=== PATIENT | female | born 1965 | race Caucasian/White ===

== ENCOUNTER 2016-12-22 22:02 | Emergency (ER) | payer MEDICAID, OTHER ==
[~2016-12-22] VITALS: Ht 154.9 cm; Wt 66.5 kg
[~2016-12-22 22:02] MED LIST: NITR-58 PO; TRAM50TA2 PO
[2016-12-22 22:11] VITALS: Ht 154.9 cm; Wt 66.5 kg
--- NOTE | 2016-12-23 02:26 | RADRPT ---
PROCEDURE: US thyroid. CLINICAL INDICATION: Thyroid mass TECHNIQUE: Multiple sonographic images of the thyroid were obtained utilizing a linear array trans ducer with grayscale and color-flow and a Doppler imaging. The images were reviewed on a high-resolu tion PACS workstation. COMPARISON: No prior studies are available for comparison. FINDINGS: The right lobe measures 4.5 x 1.8 x 1.9 cm. The left lobe measures 4.6 x 2 x 2 cm. The isthmus measures 3 mm. There is a slightly irregular cystic lesion in the lower pole of the right thyroid measuring 1.8 x 2 .2 x 2.1 cm. Debris or frond-like material is seen inferiorly within the lesion. There is a 6 mm h ypoechoic nodule in the upper pole of the right thyroid. In the lower pole of the left thyroid ther e is a 1.4 x 1.6 x 2.1 cm hypervascular nodule. There is also a 6 mm lesion in the left thyroid chapo r the isthmus medially in the left thyroid lobe. IMPRESSION: Bilateral thyroid nodules and complex cysts. Ultrasound guided fine needle aspiration could be obta ined if indicated clinically. RPTAT: [facility] Physician Alexis Date Time Electronically viewed and signed by Physician Alexis on 12/23/2016 02:25 LE/
[2016-12-23] MEDS ORDERED: NAPR-688 PO (02:41)
[2016-12-23] MEDS ORDERED: AMO500 PO (02:41)
[2016-12-23 02:50] VITALS: BP 158/97; PULSE 68; RESP 20; TEMP 98.1
--- NOTE | 2016-12-23 02:52 | ERD ---
ER Documentation Chief Complaint Date/Time DATE: 12/23/16 TIME: 02:[address], Right ear pain, possible mass on the neck and pain. HPI This 51-year-old came to the emergency room with her daughter for feeling of something at the front of her throat as well as right ear pain. When she was in [place] they told her that she had something wrong with her thyroid. They did not tell her what and they did not initiate any treatment. For the last few days she is feeling more pressure at the front of her neck. She also had right ear pain during that time. Denies any fevers or chills. Denies hearing loss. Denies any increased heart rate, feeling of jitteriness or other symptoms of thyrotoxicosis. ROS All systems reviewed and are negative except as per history of present illness. Medications Home Meds Active Scripts Amoxicillin* (Amoxicillin*) 500 Mg Cap, 500 MG PO BID for 10 Days, CAP Prov:LIN CROWDER DO 12/23/16 Naproxen* (Naproxen*) 500 Mg Tablet, 500 MG PO BID, #20 TAB Prov:LIN CROWDER DO 12/23/16 Tramadol HCl (Tramadol HCl) 50 Mg Tablet, 50 MG PO Q4 Y for PAIN, #20 TAB Prov:BROUSSARDALESHA I. OVERLOCK ELASTIC ATTACHER 12/09/15 Nitrofurantoin Monohyd Macrocr* (Macrobid*) 100 Mg Capsr, 100 MG PO BID for 5 Days, CAP Prov:BROUSSARDALESHA I. OVERLOCK ELASTIC ATTACHER 12/09/15 Allergies Allergies: Coded Allergies: No Known Allergy (Unverified , 12/22/16) PMhx/Soc History of Surgery: Yes (kidney stones) Anesthesia Reaction: No Hx Neurological Disorder: No Hx Respiratory Disorders: No Hx Cardiac Disorders: Yes (arrhythmia, HTN) Hx Psychiatric Problems: No Hx Miscellaneous Medical Probl: Yes (KIDNEY STONES) Hx Alcohol Use: No Hx Substance Use: No Hx Tobacco Use: No Physical Exam Vitals Vital Signs Date Time Temp Pulse Resp B/P Pulse Ox O2 Delivery O2 Flow Rate FiO2 12/22/16 22:11 97.8 84 20 135/83 97 Physical Exam Const: [] No distress Head: Atraumatic Eyes: Normal Conjunctiva ENT: Normal External Ears, Nose and Mouth. Right tympanic membrane with some dullness as compared to left. No cone of light visible on the right. Tympanic membrane is intact Neck: Full range of motion..~ No meningismus. Slight increased fullness and a small area on both the right and left sides of the thyroid. Skin: No petechiae or rashes Ext: No cyanosis, or edema Neur: Awake and alert Psych: Normal Mood and Affect Procedures/MDM Patient has increased fullness of her anterior neck with multiple thyroid nodules of different echogenicity and vascularity. Explained to her that thyroid cancer is likely that she will need a needle biopsy. She also has right ear pain with dullness. Family stated they would like to have antibiotics in case there is an ear infection. I am going to discharge her with amoxicillin as well as naproxen for inflammation. Patient is able to swallow and drinking water in the emergency room. There is no acute need for admission. The patient has good primary care follow-up. I instructed them to call their doctor and told him the need a fine-needle biopsy of the lesions to look for cancer. Also provided them with a copy of the ultrasound report as well as a CD with the visual information on it. Thyroid ultrasound interpretation: For different thyroid nodules of different vascularity. Departure Diagnosis: Primary Impression: Multiple thyroid nodules Additional Impression: Otitis media Condition: Stable Patient Instructions: Fine-Needle Thyroid Biopsy, Common Thyroid Problems, Otitis Media, Abx Tx (Adult) Additional Instructions: Call your primary care doctor TOMORROW for an appointment during the next 2-3 days.See the doctor sooner or return here if your condition worsens before your appointment time. LIN CROWDER DO December 23, 2016 02:52
== END 2016-12-23 02:57 | disposition home or self-care (01) ==
LOC: E/R 22:02
DX: E04.1 Nontoxic single thyroid nodule (principal); H66.91 Otitis media, unspecified, right ear; I10 Essential (primary) hypertension
CPT/HCPCS: 76536; Z7502

== ENCOUNTER 2017-03-11 20:44 | Inpatient (IN) | payer OTHER ==
[~2017-03-11] VITALS: Ht 152.4 cm; Wt 66.0 kg
[~2017-03-11 20:44] MED LIST changes: +AMO500 PO; +NAPR-688 PO
[2017-03-11 20:46] VITALS: Ht 152.4 cm; Wt 66.0 kg
[2017-03-12] MEDS ORDERED: SOD CHLORIDE 0.9% 500 ML IV STA (02:12)
[2017-03-12 02:58] LABS: BASOPHIL # 0.1 10^3/ul (0.0-0.1); BASOPHILS % 0.9 % (0.0-2.0); EOSINOPHILS # 0.3 10^3/ul (0.0-0.5); EOSINOPHILS % 3.2 % (0.0-7.0); HEMOGLOBIN 14.2 g/dl (12.0-16.0); LYMPHOCYTES # 4.5 10^3/ul (0.8-2.9); LYMPHOCYTES % 41.6 % (15.0-51.0); MEAN CORPUSCULAR HEMOGLOBIN 30.4 pg (29.0-33.0); MEAN CORPUSCULAR HGB CONC 32.3 g/dl (32.0-37.0); MEAN CORPUSCULAR VOLUME 94.2 fl (82.0-101.0); MEAN PLATELET VOLUME 12.8 fl (7.4-10.4); MONOCYTE # 0.9 10^3/ul (0.3-0.9); MONOCYTES % 8.2 % (0.0-11.0); NEUTROPHIL # 4.9 10^3/ul (1.6-7.5); NEUTROPHILS % 45.8 % (39.0-77.0); PLATELET COUNT 149 10^3/UL (140-415); RED BLOOD COUNT 4.67 10^6/ul (4.20-5.40); RED CELL DISTRIBUTION WIDTH 12.4 % (11.5-14.5); WHITE BLOOD COUNT 10.7 10^3/ul (4.8-10.8)
[2017-03-12 03:49] LABS: ALBUMIN 4.6 g/dl (3.3-4.9); ALBUMIN/GLOBULIN RATIO 1.17; BILIRUBIN,INDIRECT 0.3 mg/dl (0-1.1); BILIRUBIN,TOTAL 0.3 mg/dl (0.2-1.3); CREATININE 0.85 mg/dl (0.44-1.00); POTASSIUM 5.4 mmol/L (3.5-5.1); TOTAL PROTEIN 8.5 g/dl (6.1-8.1)
[2017-03-12 03:53] LABS: CALCIUM 13.4 mg/dl (8.4-10.2)
[2017-03-12 04:19] LABS: UR BACTERIA FEW /HPF (NONE SEEN); UR RBC 14 /HPF (0-5); UR SQUAMOUS EPITHELIAL CELL FEW /HPF (FEW)
[2017-03-12 04:27] LABS: ADD UMIC YES; UR ASCORBIC ACID NEGATIVE (NEGATIVE); UR BILIRUBIN (Dip) NEGATIVE (NEGATIVE); UR BLOOD (Dip) 2+ mg/dL (NEGATIVE); UR CLARITY SLIGHTLY CLOUDY (CLEAR); UR COLOR YELLOW (YELLOW); UR GLUCOSE (Dip) NEGATIVE (NEGATIVE); UR KETONES (Dip) NEGATIVE (NEGATIVE); UR LEUKOCYTE ESTERASE (Dip) 3+ Leu/ul (NEGATIVE); UR NITRITE (Dip) NEGATIVE (NEGATIVE); UR SPECIFIC GRAVITY (Dip) 1.004 (1.003-1.030); UR TOTAL PROTEIN (Dip) NEGATIVE (NEGATIVE); UR UROBILINOGEN (Dip) NEGATIVE (NEGATIVE)
[2017-03-12 05:15] VITALS: TEMP 98
--- NOTE | 2017-03-12 05:41 | ERA ---
ER Documentation Chief Complaint Date/Time DATE: 03/12/17 TIME: 05:39 Chief Complaint sent by PMD for abnormal labs- hypercalcemia HPI Symptoms are severe elevated calcium in by her primary care physician. Patient has known history of parathyroid disease. No fevers no chills no nausea no vomiting. No difficulty breathing. No other current issues. ROS All systems reviewed and are negative except as per history of present illness. Medications Home Meds Discontinued Scripts Amoxicillin* (Amoxicillin*) 500 Mg Cap, 500 MG PO BID for 10 Days, CAP Prov:LAKESHALIN DO 12/23/16 Naproxen* (Naproxen*) 500 Mg Tablet, 500 MG PO BID, #20 TAB Prov:LAKESHALIN DO 12/23/16 Tramadol HCl (Tramadol HCl) 50 Mg Tablet, 50 MG PO Q4 Y for PAIN, #20 TAB Prov:ALESHA BROUSSARD I. PUTTY PATCHER 12/09/15 Nitrofurantoin Monohyd Macrocr* (Macrobid*) 100 Mg Capsr, 100 MG PO BID for 5 Days, CAP Prov:ALESHA BROUSSARD I. PUTTY PATCHER 12/09/15 Allergies Allergies: Coded Allergies: No Known Allergy (Unverified , 03/12/17) PMhx/Soc History of Surgery: Yes (kidney stones) Anesthesia Reaction: No Hx Neurological Disorder: No Hx Respiratory Disorders: No Hx Cardiac Disorders: Yes (arrhythmia, HTN) Hx Psychiatric Problems: No Hx Miscellaneous Medical Probl: Yes (KIDNEY STONES) Hx Alcohol Use: No Hx Substance Use: No Hx Tobacco Use: No Smoking Status: Never smoker Physical Exam Vitals Vital Signs Date Time Temp Pulse Resp B/P Pulse Ox O2 Delivery O2 Flow Rate FiO2 03/11/17 20:46 97.7 82 20 157/86 98 Physical Exam Const: [] Head: Atraumatic Eyes: Normal Conjunctiva ENT: Normal External Ears, Nose and Mouth. Neck: Full range of motion..~ No meningismus. Resp: Clear to auscultation bilaterally Cardio: Regular rate and rhythm, no murmurs Abd: Soft, non tender, non distended. Normal bowel sounds Skin: No petechiae or rashes Back: No midline or flank tenderness Ext: No cyanosis, or edema Neur: Awake and alert Psych: Normal Mood and Affect Result Diagram: 03/12/173 03/12/17 0233 Results 24 hrs Laboratory Tests Test 03/12/17 02:33 03/12/17 03:30 White Blood Count 10.710^3/ul Red Blood Count 4.6710^6/ul Hemoglobin 14.2g/dl Hematocrit 44.0% Mean Corpuscular Volume 94.2fl Mean Corpuscular Hemoglobin 30.4pg Mean Corpuscular Hemoglobin Concent 32.3g/dl Red Cell Distribution Width 12.4% Platelet Count 78190^3/UL Mean Platelet Volume 12.8fl Neutrophils % 45.8% Lymphocytes % 41.6% Monocytes % 8.2% Eosinophils % 3.2% Basophils % 0.9% Nucleated Red Blood Cells % 0.0/100WBC Neutrophils # 4.910^3/ul Lymphocytes # 4.510^3/ul Monocytes # 0.910^3/ul Eosinophils # 0.310^3/ul Basophils # 0.110^3/ul Nucleated Red Blood Cells # 0.010^3/ul Sodium Level 142mmol/L Potassium Level 5.4mmol/L Chloride Level 106mmol/L Carbon Dioxide Level 22mmol/L Anion Gap 19 Blood Urea Nitrogen 15mg/dl Creatinine 0.85mg/dl Glucose Level 90mg/dl Calcium Level 13.4mg/dl Total Bilirubin 0.3mg/dl Direct Bilirubin 0.00mg/dl Indirect Bilirubin 0.3mg/dl Aspartate Amino Transf (AST/SGOT) 42IU/L Alanine Aminotransferase (ALT/SGPT) 75IU/L Alkaline Phosphatase 150IU/L Total Protein 8.5g/dl Albumin 4.6g/dl Globulin 3.90g/dl Albumin/Globulin Ratio 1.17 Lipase 101U/L Urine Color YELLOW Urine Clarity SLIGHTLY CLOUDY Urine pH 6.0 Urine Specific [place] 1.004 Urine Ketones NEGATIVEmg/dL Urine Nitrite NEGATIVEmg/dL Urine Bilirubin NEGATIVEmg/dL Urine Urobilinogen NEGATIVEmg/dL Urine Leukocyte Esterase 3+[place]/ul Urine Microscopic RBC 14/HPF Urine Microscopic WBC 108/HPF Urine Squamous Epithelial Cells FEW/HPF Urine Bacteria FEW/HPF Urine Hemoglobin 2+mg/dL Urine Glucose NEGATIVEmg/dL Urine Total Protein NEGATIVEmg/dl Current Medications Medications (Trade) Dose Ordered Sig/Debbie Route PRN Reason Start Time Stop Time Status Last Admin Dose Admin Sodium Chloride (NS) 500 ml @ 500 mls/hr Q1H STAT IV 03/12/17 02:12 03/12/17 03:11 DC 03/12/17 02:36 Procedures/MDM Medical decision making: This very pleasant patient with severe hypercalcemia. Patient states she is starting to pains in her "bones". Patient be admitted for further evaluation and management and met possible definitive management with parathyroid surgery. Departure Diagnosis: Primary Impression: Hypercalcemia ARNULFO REAL Mar 12, 2017 05:41
[2017-03-12] MEDS ORDERED: morphine 4 MG/ML VIAL IV PRN (07:00)
[2017-03-12] MEDS ORDERED: ONDANSETRON 4 MG INJ IV PRN (07:00)
[2017-03-12] MEDS ORDERED: MAGNESIUM HYDROXIDE 30ML CUP PO PRN (07:00)
[2017-03-12] MEDS ORDERED: NACL 0.9% 3 ML SYG IV SCH (07:00)
[2017-03-12 08:03] VITALS: BP 140/84; RESP 16
[2017-03-12] MEDS: SOD CHLORIDE 0.9% 1,000 ML IV SCH ×3 (10:00→20:47)
[2017-03-12 10:02] LABS: T3 UPTAKE 34.1 % (23.5-40.5)
[2017-03-12] MEDS: ENOXAPARIN 40 MG/0.4 ML SYG SC SCH (10:05)
--- NOTE | 2017-03-12 10:12 | HP ---
Date/Time of Note Date/Time of Note DATE: 03/12/17 TIME: 09:57 Assessment/Plan Assessment/Plan Assessment/Plan 1. Hypercalcemia: likely 2/2 hyperparathyroidism - will check ionized calcium and iPTH. - will treat with IVF - Endocrine consult 2. Bilateral thyroid nodules and complex cysts - will leave the decision about FNA to endocrine - will check TSH and thyroid profile 3. Hyperkalemia: - check am lab 4. Elevated transaminase - monitor for now - RUQ u/s will be considered HPI/ROS Admit Date/Time Admit Date/Time Mar 12, 2017 at 05:55 Hx of Present Illness This is a 51 yo female with hx of HTN, arrythmia, kidney stones and thyroid nodules who was sent by PCP for hypercalcemia. Here in ER, calcium was 13.6. Patient was in our ER few months ago and at that time, thyroid u/s showed Bilateral thyroid nodules and complex cysts. She was told to f/u as outpt. . PMH/Family/Social Social History Smoking Status: Never smoker Exam/Review of Systems Vital Signs Vitals Vital Signs Date Time Temp Pulse Resp B/P Pulse Ox O2 Delivery O2 Flow Rate FiO2 03/12/17 08:03 97.7 68 16 140/84 97 03/12/17 05:15 Room Air Labs Result Diagram: 03/12/17 0233 03/12/17 0233 Medications Medications Current Medications Sodium Chloride (NS) 1,000 ml @ 150 mls/hr Q6H40M IV ; Start 03/12/17 at 06:48 Ondansetron HCl (Zofran Inj) 4 mg Q6H PRN IV NAUSEA AND/OR VOMITING; Start 03/12 at 07:00 Acetaminophen (Tylenol Tab) 650 mg Q6H PRN PO PAIN LEVEL 1-3 OR FEVER; Start at 07:00 Morphine Sulfate (morphine) 2 mg Q4H PRN IV SEVERE PAIN LEVEL 7-10; Start at 07:00 Magnesium Hydroxide (Milk Of Mag) 30 ml DAILY PRN PO CONSTIPATION; Start at 07:00 Enoxaparin Sodium (Lovenox) 40 mg DAILY SC ; Start 03/12/17 at 09:00 ARNULFO CABRALES MD Mar 12, 2017 10:10
[2017-03-12 10:16] LABS: THYROID STIMULATING HORMONE 1.07 MIU/L (0.465-4.680)
--- NOTE | 2017-03-12 13:41 | CONS ---
Date/Time of Note Date/Time of Note DATE: 03/12/17 TIME: 13:31 Assessment/Plan Assessment/Plan Problems: (1) Hypercalcemia Status: Chronic Comment: Records in the hospital computer system demonstrate at least one year of hypercalcemia. I suspect this probably does represent primary hyperparathyroidism. The workup is in process now. Given the thyroid nodules she will need more delineated testing. Specifically given that we are looking at possibly doing surgical procedure her neck she will need ultrasound-guided FNA biopsy of these nodules. If the FNAs are suspicious and that would allow us to modify the surgical approach that is used in this lady. In the meantime she will be on hydration, and will follow her calciums to get her more normalized. (2) Calcium oxalate kidney stones Status: Chronic Comment: Noted. The etiology of this most likely is a combination of the count of the oxalate as well as the hyperparathyroidism/calcium disturbance (3) Hypertension Status: Chronic Comment: This is reported in the history although does not appear this young lady has been on any medications for this. Until we get the calcium worked out hydrochlorothiazide and other thiazide diuretics should be avoided Qualifiers: Qualified Code: I10 - Essential hypertension (4) Abnormal finding on urinalysis Status: Acute Comment: Cath UA cath urine specimen for culture now Additional Assessment/Plan Thyroid nodules as above these will need to be biopsied Consultation Date/Type/Reason Admit Date/Time Mar 12, 2017 at 05:55 Date of Consultation: Mar 12, 2017 Type of Consultation: Endocrinology Reason for Consultation 1" hypercalcemia with recurrent renal stone disease; 2) thyroid nodules Referring Provider: RAGINI JUNIOR of Present Illness Pleasant 51-year-old [place] and [place] speaking young lady with a history of recurrent renal stones previously admitted admitted and operated on at another facility by Dr. Vik Renner. Her primary care physician is Dr. Wolfgang Stack, and her precision aircraft systems assembler is Dr. Doyle Leonard. She has been dealing with a hypercalcemia and according to Dr. Leonard's office notes of been referred for evaluation but had not had it completed. She has a history of recurring renal stones are calcium oxalate. She had had a current serum calcium 11.6 a year ago at this facility. She never developed more significant hypercalcemia because this was sent over for hydration and treatment. She has no known radiation exposure to the thyroid bed although there is a possibility that she may have had some exposure to the [place] nuclear incident. There is no family history of thyroid malignancy. There is no family history to suggest an MEN syndrome. Please note her admission urinalysis is suggestive of possible UTI Constitutional: no complaints (No fevers chills or sweats) Eyes: no complaints ENT: no complaints Respiratory: no complaints Cardiovascular: no complaints Gastrointestinal: no complaints Genitourinary: dysuria Past Medical History 1) recurrent calcium oxalate renal stones; 2) hypercalcemia 3) hypertension 4) cardiac dysrhythmia type unknown Past Surgical History Some type of surgical procedure for renal stones probable cystoscopy with stenting Family History Significant Family History: no pertinent family hx Social History Alcohol Use: none Smoking Status: Never smoker Drug Use: none Exam/Review of Systems Vital Signs Vitals Vital Signs Date Time Temp Pulse Resp B/P Pulse Ox O2 Delivery O2 Flow Rate FiO2 03/12/17 08:03 97.7 68 16 140/84 97 03/12/17 05:15 Room Air Exam Constitutional: alert, oriented Neck: non-tender, supple, thyromegaly (Thyroid with multinodular texture 2 nodules greater than 10 mm) Respiratory: clear to auscultation, normal air movement Cardiovascular: nl pulses, regular rate and rhythm Gastrointestinal: nl liver, spleen, non-tender, soft Neurological: TANKROOM WORKER II-XII intact, nl mental status, nl speech, nl strength Results Result Diagram: 03/12/17 0233 03/12/17 0233 Results 24 hrs Laboratory Tests Test 03/12/17 02:33 03/12/17 03:30 03/12/17 08:53 White Blood Count 10.7 Red Blood Count 4.67 Hemoglobin 14.2 Hematocrit 44.0 Mean Corpuscular Volume 94.2 Mean Corpuscular Hemoglobin 30.4 Mean Corpuscular Hemoglobin Concent 32.3 Red Cell Distribution Width 12.4 Platelet Count 149 Mean Platelet Volume 12.8 H Neutrophils % 45.8 Lymphocytes % 41.6 Monocytes % 8.2 Eosinophils % 3.2 Basophils % 0.9 Nucleated Red Blood Cells % 0.0 Neutrophils # 4.9 Lymphocytes # 4.5 H Monocytes # 0.9 Eosinophils # 0.3 Basophils # 0.1 Nucleated Red Blood Cells # 0.0 Sodium Level 142 Potassium Level 5.4 H Chloride Level 106 Carbon Dioxide Level 22 Anion Gap 19 H Blood Urea Nitrogen 15 Creatinine 0.85 Glucose Level 90 Calcium Level 13.4 *H Total Bilirubin 0.3 Direct Bilirubin 0.00 Indirect Bilirubin 0.3 Aspartate Amino Transf (AST/SGOT) 42 Alanine Aminotransferase (ALT/SGPT) 75 H Alkaline Phosphatase 150 H Total Protein 8.5 H Albumin 4.6 Globulin 3.90 H Albumin/Globulin Ratio 1.17 Lipase 101 Urine Color YELLOW Urine Clarity SLIGHTLY CLOUDY A Urine pH 6.0 Urine Specific [place] 1.004 Urine Ketones NEGATIVE Urine Nitrite NEGATIVE Urine Bilirubin NEGATIVE Urine Urobilinogen NEGATIVE Urine Leukocyte Esterase 3+ H Urine Microscopic RBC 14 H Urine Microscopic WBC 108 H Urine Squamous Epithelial Cells FEW Urine Bacteria FEW A Urine Hemoglobin 2+ H Urine Glucose NEGATIVE Urine Total Protein NEGATIVE Ionized Calcium (Measured) 1.7 H Thyroid Stimulating Hormone (TSH) 1.070 Free Thyroxine Index 2.63 Thyroxine (T4) 7.7 Triiodothyronine (T3) Uptake 34.1 Parathyroid Hormone (Intact) Medications Medications Current Medications Sodium Chloride (NS) 1,000 ml @ 150 mls/hr Q6H40M IV Last administered on 10:00; Admin Dose 150 MLS/HR; Start 03/12/17 at 06:48 Ondansetron HCl (Zofran Inj) 4 mg Q6H PRN IV NAUSEA AND/OR VOMITING; Start 03/12 at 07:00 Acetaminophen (Tylenol Tab) 650 mg Q6H PRN PO PAIN LEVEL 1-3 OR FEVER; Start at 07:00 Morphine Sulfate (morphine) 2 mg Q4H PRN IV SEVERE PAIN LEVEL 7-10; Start at 07:00 Magnesium Hydroxide (Milk Of Mag) 30 ml DAILY PRN PO CONSTIPATION; Start at 07:00 Enoxaparin Sodium (Lovenox) 40 mg DAILY SC Last administered on 03/12/17 10:05 ; Admin Dose 40 MG; Start 03/12/17 at 09:00 Copies To: CC: DIPIKA RENNER; DOYLE LEONARD MD, JOSHUA A MD Mar 12, 2017 13:41
[2017-03-12] MEDS ORDERED: SOD CHLORIDE 0.9% 1,000 ML IV ONE (14:00)
[2017-03-12] MEDS: ACETAMINOPHEN 325 MG TAB PO PRN (14:14)
[2017-03-12 14:20] VITALS: BP 140/95; RESP 18
[2017-03-12 16:14] LABS: PROTIME 13.2 Sec (12.2-14.2)
[2017-03-12] MEDS ORDERED: FOSFOMYCIN 3 GM PACKET PO ONE (20:00)
[2017-03-12 20:13] VITALS: BP 127/75; RESP 18
[2017-03-13 02:16] VITALS: BP 110/65; RESP 17
[2017-03-13] MEDS: SOD CHLORIDE 0.9% 1,000 ML IV SCH ×4 (03:06→23:55)
[2017-03-13] MEDS: ACETAMINOPHEN 325 MG TAB PO PRN ×2 (03:08→23:55)
[2017-03-13 05:58] LABS: ABNORMAL IP MESSAGE 1; BASOPHIL # 0.1 10^3/ul (0.0-0.1); BASOPHILS % 0.7 % (0.0-2.0); EOSINOPHILS # 0.3 10^3/ul (0.0-0.5); EOSINOPHILS % 3.5 % (0.0-7.0); HEMATOCRIT 39.8 % (37.0-47.0); HEMOGLOBIN 12.9 g/dl (12.0-16.0); LYMPHOCYTES # 2.9 10^3/ul (0.8-2.9); LYMPHOCYTES % 33.9 % (15.0-51.0); MEAN CORPUSCULAR HEMOGLOBIN 30.9 pg (29.0-33.0); MEAN CORPUSCULAR HGB CONC 32.4 g/dl (32.0-37.0); MEAN CORPUSCULAR VOLUME 95.2 fl (82.0-101.0); MEAN PLATELET VOLUME 13.4 fl (7.4-10.4); MONOCYTE # 0.7 10^3/ul (0.3-0.9); MONOCYTES % 8.7 % (0.0-11.0); NEUTROPHIL # 4.5 10^3/ul (1.6-7.5); PLATELET COUNT 156 10^3/UL (140-415); RED BLOOD COUNT 4.18 10^6/ul (4.20-5.40); RED CELL DISTRIBUTION WIDTH 12.1 % (11.5-14.5); WHITE BLOOD COUNT 8.4 10^3/ul (4.8-10.8)
[2017-03-13 06:05] LABS: POSITIVE DIFF @See below
[2017-03-13 06:49] LABS: ALBUMIN 3.4 g/dl (3.3-4.9); ALBUMIN/GLOBULIN RATIO 1.06; BILIRUBIN,INDIRECT 0.1 mg/dl (0-1.1); BILIRUBIN,TOTAL 0.1 mg/dl (0.2-1.3); CALCIUM 11.5 mg/dl (8.4-10.2); CREATININE 0.78 mg/dl (0.44-1.00); PHOSPHORUS 2.1 mg/dl (2.5-4.9); POTASSIUM 4.3 mmol/L (3.5-5.1); TOTAL PROTEIN 6.6 g/dl (6.1-8.1)
[2017-03-13 07:54] VITALS: BP 162/93; RESP 18
[2017-03-13] MEDS: ENOXAPARIN 40 MG/0.4 ML SYG SC SCH (08:41)
--- NOTE | 2017-03-13 14:41 | PN ---
Date/Time of Note Date/Time of Note DATE: 03/13/17 TIME: 14:34 Assessment/Plan VTE Prophylaxis VTE Prophylaxis Intervention: LMWH Lines/Catheters IV [facility] Saline Lock Urinary Cath still in place: No Assessment/Plan Chief Complaint/Hosp Course Assessment and plan:51 yo female with hx of HTN, arrythmia, kidney stones and thyroid nodules who was sent by PCP for hypercalcemia, likely secondary to hyperparathyroidism, also with thyroid mass. 1. Hypercalcemia: Improved with IV fluids (13 -> 11.4). Again likely secondary to primary hyperparathyroidism. Appreciate endocrinology consult. -Continue IV fluids, monitor calcium levels daily, follow-up endocrinology recommended 2. Thyroid mass: Appears to be bilateral thyroid nodules and complex cyst. -ultrasound-guided FNA biopsy of these nodules to be done today, follow-up results. -ENT has also been consulted, although awaiting official report from them. They may want to further scan the parathyroid area as well. We will follow-up final orders on this if needed. 3. Hypertension: Stable, continue current medication 4. UTI: Start antibiotics, follow final urine culture results Problems: Subjective 24 Hr Interval Summary Free Text/Dictation Patient had parathyroid scan earlier today, now off the floor getting needle biopsy of thyroid mass. No acute events overnight. Exam/Review of Systems Vital Signs Vitals Vital Signs Date Time Temp Pulse Resp B/P Pulse Ox O2 Delivery O2 Flow Rate FiO2 03/13/17 07:54 98.1 76 18 162/93 97 03/12/17 05:15 Room Air Intake and Output 03/12/17 03/12/17 03/13/17 15:00 23:00 07:00 Intake Total 2760 ml 1640 ml Output Total 2100 ml Balance 660 ml 1640 ml Exam Physical exam: Unable to be performed today because patient is presently off the floor at radiology Results Result Diagram: 03/13/17 0439 03/13/17 0439 Results 24 hrs Laboratory Tests Test 03/12/17 15:38 03/13/17 04:39 Prothrombin Time 13.2 Prothrombin Time Ratio 1.0 INR International Normalized Ratio 1.00 White Blood Count 8.4 # Red Blood Count 4.18 L Hemoglobin 12.9 Hematocrit 39.8 Mean Corpuscular Volume 95.2 Mean Corpuscular Hemoglobin 30.9 Mean Corpuscular Hemoglobin Concent 32.4 Red Cell Distribution Width 12.1 Platelet Count 156 Mean Platelet Volume 13.4 H Neutrophils % 53.0 Lymphocytes % 33.9 Monocytes % 8.7 Eosinophils % 3.5 Basophils % 0.7 Nucleated Red Blood Cells % 0.0 Neutrophils # 4.5 Lymphocytes # 2.9 Monocytes # 0.7 Eosinophils # 0.3 Basophils # 0.1 Nucleated Red Blood Cells # 0.0 Sodium Level 145 H Potassium Level 4.3 Chloride Level 113 H Carbon Dioxide Level 22 Anion Gap 14 Blood Urea Nitrogen 10 Creatinine 0.78 Glucose Level 93 Calcium Level 11.5 H Phosphorus Level 2.1 L Magnesium Level 2.0 Total Bilirubin 0.1 L Direct Bilirubin 0.00 Indirect Bilirubin 0.1 Aspartate Amino Transf (AST/SGOT) 26 Alanine Aminotransferase (ALT/SGPT) 64 Alkaline Phosphatase 127 H Total Protein 6.6 # Albumin 3.4 # Globulin 3.20 Albumin/Globulin Ratio 1.06 Vitamin D 1,25-Dihydroxy < 12.8 L Parathyroid Hormone (Intact) Medications Medications Current Medications Sodium Chloride (NS) 1,000 ml @ 150 mls/hr Q6H40M IV Last administered on 13:52; Admin Dose 150 MLS/HR; Start 03/12/17 at 06:48 Ondansetron HCl (Zofran Inj) 4 mg Q6H PRN IV NAUSEA AND/OR VOMITING; Start 03/12 at 07:00 Acetaminophen (Tylenol Tab) 650 mg Q6H PRN PO PAIN LEVEL 1-3 OR FEVER Last administered on 03/13/17 03:08; Admin Dose 650 MG; Start 03/12/17 at 07:00 Morphine Sulfate (morphine) 2 mg Q4H PRN IV SEVERE PAIN LEVEL 7-10; Start at 07:00 Magnesium Hydroxide (Milk Of Mag) 30 ml DAILY PRN PO CONSTIPATION; Start at 07:00 Enoxaparin Sodium (Lovenox) 40 mg DAILY SC Last administered on 03/12/17 10:05 ; Admin Dose 40 MG; Start 03/12/17 at 09:00 RAGINI JUNIOR Mar 13, 2017 14:40
[2017-03-13] MEDS ORDERED: LIDOCAINE 1% (MDV) 20 ML INJ ONE (14:52)
--- NOTE | 2017-03-13 15:08 | RADRPT ---
PROCEDURE: Parathyroid sestamibi scan CLINICAL INDICATION: 51 -year-old patient with hyperparathyroidism. TECHNIQUE: Following the intravenous injection of 20.4 mCi of Tc-99m Sestamibi, planar images of t he neck and chest were obtained at 5 minutes and 3 hours post injection. COMPARISON: No prior sestamibi scans. Ultrasound of the thyroid gland dated December 23, 2016. FINDINGS: The thyroid gland is well visualized on the early images. There appears to be asymmetrically increased activity in the mid to lower aspect of the left lobe of the thyroid gland as compared to the right lobe, which reveals mild questionable retention of activ ity on the delayed views. No other abnormal focal areas of increased activity are seen in the thyroid gland and in the remaind er of the neck and chest. Physiologic activity is seen in the salivary glands. IMPRESSION: Asymmetrically increased activity in the mid to lower pole of the left lobe of the thyroid gland wit h questionable retention of activity on the delayed views; a parathyroid adenoma cannot be excluded. RPTAT: HH .Valentina Sneed MD, MD Date Time Electronically viewed and signed by .Valentina Sneed MD, MD on 03/13/2017 15:08 .L/
--- NOTE | 2017-03-13 16:10 | RADRPT ---
PROCEDURE: Ultrasound guided thyroid biopsy. CLINICAL INDICATION: Solid nodule in the left lobe inferiorly. TECHNIQUE: Prior to the procedure, informed consent was obtained. Risks including bleeding and in fection were explained to the patient. The patient understood was willing to proceed. A procedural pause was performed. The patient's name, date of , and procedure to be performed were verifie d. Using local anesthetic, sterile technique and ultrasound guidance, a 25-gauge needle was advanced in to the nodule in the inferior left lobe. Multiple passes were made. Adequate tissue was obtained a nd sent for pathologic analysis. The pathologist indicated there was adequate tissue for diagnostic purposes. The patient tolerated the procedure well. COMPARISON: Thyroid ultrasound dated 12/23/2016. FINDINGS: Images demonstrate the needle within the nodule in the left lobe inferiorly. IMPRESSION: 1. Satisfactory ultrasound-guided left lobe thyroid nodule biopsy. RPTAT: QQ .Akshat Obregon MD, MD Date Time Electronically viewed and signed by .Akshat Obregon MD, on 03/13/2017 16:10 .R/
--- NOTE | 2017-03-13 17:35 | CONS ---
Date/Time of Note Date/Time of Note DATE: 03/13/17 TIME: 17:32 Assessment/Plan Assessment/Plan Chief Complaint/Hosp Course Pleasant 51-year-old Cuban and Uruguayan speaking young lady with a history of recurrent renal stones previously admitted admitted and operated on at another facility by Dr. Vik Renner. Her primary care physician is Dr. Wolfgang Stack, and her sensor operator is Dr. Doyle Mendoza. She has been dealing with a hypercalcemia and according to Dr. Mendoza's office notes of been referred for evaluation but had not had it completed. She has a history of recurring renal stones are calcium oxalate. She had had a current serum calcium 11.6 a year ago at this facility. She never developed more significant hypercalcemia because this was sent over for hydration and treatment. She has no known radiation exposure to the thyroid bed although there is a possibility that she may have had some exposure to the [place] nuclear incident. There is no family history of thyroid malignancy. There is no family history to suggest an MEN syndrome. Please note her admission urinalysis is suggestive of possible UTI Problems: (1) Hypertension Status: Chronic Comment: Noted. Continue under an observational status please note expect normalization with correction of the hyperparathyroidism Qualifiers: Hypertension type: essential hypertension Qualified Code: I10 - Essential hypertension (2) Hypercalcemia Status: Chronic Comment: This is most likely primary hyperparathyroidism given the total picture. The nuclear medicine parathyroid imaging scan is suggestive of an abnormality however the radiologist is somewhat indistinct. I will get a CT scan of the soft tissues of the neck to try and elucidate further. However the contreras issue here is the ENT consult that is pending from : To get her set up for surgery. In addition we need to know the results of the FNA biopsy of the thyroid to determine whether or not she is having a parathyroidectomy or parathyroidectomy along with a hemithyroidectomy versus total thyroidectomy (3) Abnormal finding on urinalysis Status: Acute Comment: Culture is less worrisome. She is already had formalized dose of antibiotics and should do well Consultation Date/Type/Reason Admit Date/Time Mar 12, 2017 at 05:55 Initial Consult Date 03/12/17 Type of Consultation: Endocrinology Reason for Consultation Hypercalcemia most likely due to primary hyperparathyroidism; multinodular goiter with dominant nodule Referring Provider: RAHI,RAGINI S. 24 HR Interval Summary Constitutional: improved Exam/Review of Systems Vital Signs Vitals Vital Signs Date Time Temp Pulse Resp B/P Pulse Ox O2 Delivery O2 Flow Rate FiO2 03/13/17 07:54 98.1 76 18 162/93 97 03/12/17 05:15 Room Air Intake and Output 03/12/17 03/12/17 03/13/17 15:00 23:00 07:00 Intake Total 2760 ml 1640 ml Output Total 2100 ml Balance 660 ml 1640 ml Exam Daughter present at bedside, translating all questions and discussion on physiology and medical condition Constitutional: alert, oriented Respiratory: clear to auscultation, normal air movement Results Result Diagram: 03/13/17 0439 03/13/17 0439 Results 24 hrs Laboratory Tests Test 03/13/17 04:39 White Blood Count 8.4 # Red Blood Count 4.18 L Hemoglobin 12.9 Hematocrit 39.8 Mean Corpuscular Volume 95.2 Mean Corpuscular Hemoglobin 30.9 Mean Corpuscular Hemoglobin Concent 32.4 Red Cell Distribution Width 12.1 Platelet Count 156 Mean Platelet Volume 13.4 H Neutrophils % 53.0 Lymphocytes % 33.9 Monocytes % 8.7 Eosinophils % 3.5 Basophils % 0.7 Nucleated Red Blood Cells % 0.0 Neutrophils # 4.5 Lymphocytes # 2.9 Monocytes # 0.7 Eosinophils # 0.3 Basophils # 0.1 Nucleated Red Blood Cells # 0.0 Sodium Level 145 H Potassium Level 4.3 Chloride Level 113 H Carbon Dioxide Level 22 Anion Gap 14 Blood Urea Nitrogen 10 Creatinine 0.78 Glucose Level 93 Calcium Level 11.5 H Phosphorus Level 2.1 L Magnesium Level 2.0 Total Bilirubin 0.1 L Direct Bilirubin 0.00 Indirect Bilirubin 0.1 Aspartate Amino Transf (AST/SGOT) 26 Alanine Aminotransferase (ALT/SGPT) 64 Alkaline Phosphatase 127 H Total Protein 6.6 # Albumin 3.4 # Globulin 3.20 Albumin/Globulin Ratio 1.06 Vitamin D 1,25-Dihydroxy < 12.8 L Parathyroid Hormone (Intact) Medications Medications Current Medications Sodium Chloride (NS) 1,000 ml @ 150 mls/hr Q6H40M IV Last administered on t 13:52; Admin Dose 150 MLS/HR; Start 03/12/17 at 06:48 Ondansetron HCl (Zofran Inj) 4 mg Q6H PRN IV NAUSEA AND/OR VOMITING; Start 03/12 at 07:00 Acetaminophen (Tylenol Tab) 650 mg Q6H PRN PO PAIN LEVEL 1-3 OR FEVER Last administered on 03/13/17 03:08; Admin Dose 650 MG; Start 03/12/17 at 07:00 Morphine Sulfate (morphine) 2 mg Q4H PRN IV SEVERE PAIN LEVEL 7-10; Start at 07:00 Magnesium Hydroxide (Milk Of Mag) 30 ml DAILY PRN PO CONSTIPATION; Start at 07:00 Enoxaparin Sodium 40 mg 40 mg DAILY SC Last administered on 03/12/17 10:05; Admin Dose 40 MG; Start 03/12/17 at 09:00 Ceftriaxone Sodium (Rocephin) 50 ml @ 100 mls/hr Q24H IVPB ; Start 03/13/17 at 15:00 LIN MARIE MD Mar 13, 2017 17:34
[2017-03-13] MEDS: CEFTRIAXONE 2 GM/50 ML (PMX) 50 ML IVPB SCH (17:39)
[2017-03-13 20:30] VITALS: BP 160/89; RESP 20
[2017-03-14 02:00] VITALS: BP 137/86; RESP 20
[2017-03-14 02:40] LABS: PROTEIN, TOTAL 6.1 g/dL (6.1-8.1)
[2017-03-14] MEDS: SOD CHLORIDE 0.9% 1,000 ML IV SCH ×4 (06:21→16:20)
[2017-03-14 06:54] LABS: ALBUMIN 3.5 g/dl (3.3-4.9); ALBUMIN/GLOBULIN RATIO 1.06; BILIRUBIN,INDIRECT 0.2 mg/dl (0-1.1); BILIRUBIN,TOTAL 0.2 mg/dl (0.2-1.3); CALCIUM 12.2 mg/dl (8.4-10.2); CREATININE 0.78 mg/dl (0.44-1.00); POTASSIUM 4.3 mmol/L (3.5-5.1); TOTAL PROTEIN 6.8 g/dl (6.1-8.1)
[2017-03-14 07:40] VITALS: BP 149/104; RESP 16
[2017-03-14] MEDS: ENOXAPARIN 40 MG/0.4 ML SYG SC SCH (09:00)
[2017-03-14] MEDS ORDERED: IOHEXOL 300MG/ML 150 ML BTL ONE (11:15)
[2017-03-14] MEDS ORDERED: SOD CHLORIDE 0.9% 100 ML ONE (11:15)
--- NOTE | 2017-03-14 11:51 | RADRPT ---
PROCEDURE: CT neck with intravenous contrast CLINICAL INDICATION: Primary hyperparathyroidism. COMPARISON: Nuclear medicine Tc 99 - sestamibi examination from 03/13/2017. Ultrasound from 12/24/19. TECHNIQUE: CT of the neck was performed following the uneventful administration of 80 mL Omnipaque -300 intravenous contrast. Axial images were obtained through the neck with multiplanar reformats. DOSE: The estimated administered radiation dose was CTDI vol = 9 mGy, DLP = 238 mGy-cm. One or more of the following dose reduction techniques were used: automated exposure control, adjustment of the mA and/or kV according to patient size, or use of iterative reconstruction technique. FINDINGS: Soft tissues: Normal. No suspicious enhancement. Aerodigestive tract: Artifact from dental hardware limits evaluation of the oral cavity. No primary lesion identified within the nasopharynx, oropharynx, hypopharynx, larynx, and proximal trachea. Salivary glands: The lingual and right palatine contours are mildly enlarged, a nonspecific finding. Thyroid: A partially enhancing nodule the mid pole of the left thyroid lobe measures 13 x 16 x 15 mm . A predominantly nonenhancing nodule in the lower pole of the right thyroid lobe measures about 30 by 27 x 18 mm. No associated calcifications. Lymph nodes: There are non-specific scattered sub-centimeter lymph nodes in the neck bilaterally. No pathologically enlarged or morphologically suspicious adenopathy. Vessels: Patent. Bones: Normal. Visualized lung apices: Clear. Visualized brain parenchyma: Normal. Additional comment: None. IMPRESSION: 1. Multiple enhancing thyroid nodules measuring up to 16 mm on the left and 30 mm on the right. 2. No cervical adenopathy. This examination was performed as a routine neck CT with contrast, not as a [address] of th e neck. RPTAT: PP Physician Keisha Date Time Electronically viewed and signed by Physician Keisha on 03/14/2017 11:51 LG/
[2017-03-14] MEDS: ACETAMINOPHEN 325 MG TAB PO PRN ×2 (12:05→18:05)
--- NOTE | 2017-03-14 13:42 | CONS ---
Date/Time of Note Date/Time of Note DATE: 03/14/17 TIME: 13:38 Assessment/Plan Assessment/Plan Chief Complaint/Hosp Course Pleasant 51-year-old Croatian and South Korean speaking young lady with a history of recurrent renal stones previously admitted admitted and operated on for kidney stones at another facility by Dr. Vik Renner. Her primary care physician is Dr. Wolfgang Stack, and her director of institutional giving is Dr. Doyle Mendoza. She has been dealing with a hypercalcemia and according to Dr. Mendoza's office notes of been referred for evaluation but had not had it completed. She has a history of recurring renal stones are calcium oxalate. She had had a current serum calcium 11.6 a year ago at this facility. She never developed more significant hypercalcemia because this was sent over for hydration and treatment. She has no known radiation exposure to the thyroid bed although there is a possibility that she may have had some exposure to the [place] nuclear incident. There is no family history of thyroid malignancy. There is no family history to suggest an MEN syndrome. Please note her admission urinalysis is suggestive of possible UTI Problems: (1) Multiple thyroid nodules Status: Chronic Comment: She has had an ultrasound-guided FNA biopsy with the pathology pending at this moment. That she may need a partial thyroid reduction surgery at the time of the parathyroid surgery depending on the status of the workup. (2) Calcium oxalate kidney stones Status: Chronic Comment: Due to hypercalcemia. (3) Hypercalcemia Status: Chronic Comment: PTH level is pending but this is still highly consistent with primary hyperparathyroidism. CT scan was not revealing however please see the CT scan report this will elaborate why it was not very really feeling. Regardless ENT consult will see the patient I spoke to Dr. Logan today to verify that he had received the consultation Consultation Date/Type/Reason Admit Date/Time Mar 12, 2017 at 05:55 Initial Consult Date 03/12/17 Type of Consultation: Endocrinology Reason for Consultation Hypercalcemia with hypophosphatemia; recurrent kidney stones; thyroid nodules Referring Provider: RAGINI JUNIOR 24 HR Interval Summary Free Text/Dictation Maryam young lady who speaks South Korean and Croatian only Constitutional: no complaints Exam/Review of Systems Vital Signs Vitals Vital Signs Date Time Temp Pulse Resp B/P Pulse Ox O2 Delivery O2 Flow Rate FiO2 03/14/17 07:40 98.4 87 16 149/104 93 03/12/17 05:15 Room Air Intake and Output 03/13/17 03/13/17 03/14/17 14:59 22:59 06:59 Intake Total 700 ml 1115 ml 2230 ml Output Total 1300 ml Balance 700 ml -185 ml 2230 ml Exam Constitutional: alert, oriented Neck: non-tender, other, supple Results Result Diagram: 03/13/17 0439 03/14/17 0437 Results 24 hrs Laboratory Tests Test 03/14/17 04:37 Sodium Level 146 H Potassium Level 4.3 Chloride Level 113 H Carbon Dioxide Level 21 Anion Gap 16 Blood Urea Nitrogen 10 Creatinine 0.78 Glucose Level 79 Calcium Level 12.2 H Total Bilirubin 0.2 Direct Bilirubin 0.00 Indirect Bilirubin 0.2 Aspartate Amino Transf (AST/SGOT) 25 Alanine Aminotransferase (ALT/SGPT) 64 Alkaline Phosphatase 124 H Total Protein 6.8 Albumin 3.5 Globulin 3.30 H Albumin/Globulin Ratio 1.06 Medications Medications Current Medications Sodium Chloride (NS) 1,000 ml @ 150 mls/hr Q6H40M IV Last administered on 06:50; Admin Dose 150 MLS/HR; Start 03/12/17 at 06:48 Ondansetron HCl (Zofran Inj) 4 mg Q6H PRN IV NAUSEA AND/OR VOMITING; Start 03/12 at 07:00 Acetaminophen (Tylenol Tab) 650 mg Q6H PRN PO PAIN LEVEL 1-3 OR FEVER Last administered on 03/14/17 12:05; Admin Dose 650 MG; Start 03/12/17 at 07:00 Morphine Sulfate (morphine) 2 mg Q4H PRN IV SEVERE PAIN LEVEL 7-10; Start at 07:00 Magnesium Hydroxide (Milk Of Mag) 30 ml DAILY PRN PO CONSTIPATION; Start at 07:00 Enoxaparin Sodium 40 mg 40 mg DAILY SC Last administered on 03/12/17 10:05; Admin Dose 40 MG; Start 03/12/17 at 09:00 Ceftriaxone Sodium (Rocephin) 50 ml @ 100 mls/hr Q24H IVPB Last administered on 03/13/17 17:39; Admin Dose 100 MLS/HR; Start 03/13/17 at 15:00 LIN MARIE MD Mar 14, 2017 13:42
[2017-03-14 14:22] VITALS: BP 133/84; RESP 16
--- NOTE | 2017-03-14 15:46 | PN ---
Date/Time of Note Date/Time of Note DATE: 03/14/17 TIME: 15:39 Assessment/Plan VTE Prophylaxis VTE Prophylaxis Intervention: SCD's Lines/Catheters IV Catheter Type (from Rust): Peripheral IV Urinary Cath still in place: No Assessment/Plan Chief Complaint/Hosp Course Assessment and plan:51 yo female with hx of HTN, arrythmia, kidney stones and thyroid nodules who was sent by PCP for hypercalcemia, likely secondary to hyperparathyroidism, also with thyroid mass. 1. Hypercalcemia: Initially improved with IV fluids, but slightly more elevated today (13 -> 11.4 ->12.2). Again likely secondary to primary hyperparathyroidism. Appreciate endocrinology consult. As well, parathyroid nuclear scan showed the following: Asymmetrically increased activity in the mid to lower pole of the left lobe of the thyroid gland with questionable retention of activity on the delayed views; a parathyroid adenoma cannot be excluded. -Continue IV fluids, monitor calcium levels daily, follow-up endocrinology recommendations -We will need to discuss with endocrinology team and ENT team about any possible neck mass resections. Also follow-up serum PTH levels. 2. Thyroid mass: Appears to be bilateral thyroid nodules and complex cyst. Ultrasound-guided FNA biopsy was performed yesterday, biopsy results still pending. Follow-up results [id number] FNA biopsy of these nodules, and endocrinology recommendations -[facility] has also been consulted, although awaiting official report from them. We will follow-up final orders on this if needed. 3. Hypertension: Stable, continue current medication 4. UTI: Start antibiotics, follow final urine culture results 5. Left flank pain: Could be related to patient's UTI, also history of calcium kidney stones. -Continue IV fluids and pain control medications. If worsens, may need to get noncontrast CT of the abdomen pelvis to further evaluate. Problems: Subjective 24 Hr Interval Summary Free Text/Dictation Patient seen by endocrinology team. She had CT of the neck performed today, along with parathyroid scan yesterday. Still waiting for biopsy results. Complaining of some left flank pain occasionally. Exam/Review of Systems Vital Signs Vitals Vital Signs Date Time Temp Pulse Resp B/P Pulse Ox O2 Delivery O2 Flow Rate FiO2 03/14/17 14:22 98.3 82 16 133/84 98 03/12/17 05:15 Room Air Intake and Output 03/13/17 03/13/17 03/14/17 15:00 23:00 07:00 Intake Total 700 ml 1115 ml 2230 ml Output Total 1300 ml Balance 700 ml -185 ml 2230 ml Exam Constitutional: alert, oriented HEENT: Pupils equal round reactive to light, extraocular muscles intact Neck: non-tender, supple, thyromegaly (Thyroid with multinodular texture 2 nodules greater than 10 mm) Respiratory: clear to auscultation, normal air movement Cardiovascular: nl pulses, regular rate and rhythm Gastrointestinal: nl liver, spleen, non-tender, soft M/S: No lower extremity edema bilaterally Neurological: METAL PRODUCTS VIEWER II-XII intact, nl mental status, nl speech, nl strength Results Result Diagram: 03/13/1743803/14/17436 Results 24 hrs Laboratory Tests Test 03/14/17 04:37 Sodium Level 146 H Potassium Level 4.3 Chloride Level 113 H Carbon Dioxide Level 21 Anion Gap 16 Blood Urea Nitrogen 10 Creatinine 0.78 Glucose Level 79 Calcium Level 12.2 H Total Bilirubin 0.2 Direct Bilirubin 0.00 Indirect Bilirubin 0.2 Aspartate Amino Transf (AST/SGOT) 25 Alanine Aminotransferase (ALT/SGPT) 64 Alkaline Phosphatase 124 H Total Protein 6.8 Albumin 3.5 Globulin 3.30 H Albumin/Globulin Ratio 1.06 Medications Medications Current Medications Sodium Chloride (NS) 1,000 ml @ 150 mls/hr Q6H40M IV Last administered on 06:50; Admin Dose 150 MLS/HR; Start 03/12/17 at 06:48 Ondansetron HCl (Zofran Inj) 4 mg Q6H PRN IV NAUSEA AND/OR VOMITING; Start 03/12 at 07:00 Acetaminophen (Tylenol Tab) 650 mg Q6H PRN PO PAIN LEVEL 1-3 OR FEVER Last administered on 03/14/17 12:05; Admin Dose 650 MG; Start 03/12/17 at 07:00 Morphine Sulfate (morphine) 2 mg Q4H PRN IV SEVERE PAIN LEVEL 7-10; Start at 07:00 Magnesium Hydroxide (Milk Of Mag) 30 ml DAILY PRN PO CONSTIPATION; Start at 07:00 Enoxaparin Sodium 40 mg 40 mg DAILY SC Last administered on 03/12/17 10:05; Admin Dose 40 MG; Start 8/1/17 at 09:00 Ceftriaxone Sodium (Rocephin) 50 ml @ 100 mls/hr Q24H IVPB Last administered on 03/13/17t 17:39; Admin Dose 100 MLS/HR; Start 03/13/17 at 15:00 RAGINI JUNIOR Mar 14, 2017 15:46
[2017-03-14] MEDS ORDERED: HYDROCODONE/APAP (5/325) TAB PO PRN (16:00)
[2017-03-14] MEDS: CEFTRIAXONE 2 GM/50 ML (PMX) 50 ML IVPB SCH (16:16)
[2017-03-14 16:55] LABS: BASOPHIL # 0.1 10^3/ul (0.0-0.1); BASOPHILS % 0.7 % (0.0-2.0); EOSINOPHILS # 0.3 10^3/ul (0.0-0.5); EOSINOPHILS % 2.8 % (0.0-7.0); HEMATOCRIT 39.6 % (37.0-47.0); HEMOGLOBIN 13.3 g/dl (12.0-16.0); LYMPHOCYTES # 3.1 10^3/ul (0.8-2.9); LYMPHOCYTES % 33.8 % (15.0-51.0); MEAN CORPUSCULAR HEMOGLOBIN 31.3 pg (29.0-33.0); MEAN CORPUSCULAR HGB CONC 33.6 g/dl (32.0-37.0); MEAN CORPUSCULAR VOLUME 93.2 fl (82.0-101.0); MONOCYTE # 0.7 10^3/ul (0.3-0.9); NEUTROPHIL # 4.9 10^3/ul (1.6-7.5); NEUTROPHILS % 54.5 % (39.0-77.0); PLATELET COUNT 159 10^3/UL (140-415); RED BLOOD COUNT 4.25 10^6/ul (4.20-5.40); RED CELL DISTRIBUTION WIDTH 12.2 % (11.5-14.5); WHITE BLOOD COUNT 9.1 10^3/ul (4.8-10.8)
[2017-03-14 21:21] VITALS: BP 171/94; RESP 19
[2017-03-14] MEDS ORDERED: hydrALAzine 20 MG INJ IV PRN (21:30)
[2017-03-14 22:03] VITALS: BP 146/81; PULSE 74
[2017-03-14 22:08] LABS: ALBUMIN 3.4 g/dL (3.8-4.8)
[2017-03-15] MEDS: SOD CHLORIDE 0.9% 1,000 ML IV SCH ×4 (01:16→17:39)
[2017-03-15 02:00] VITALS: BP 138/78; RESP 17
[2017-03-15 06:29] LABS: ABNORMAL IP MESSAGE 1; BASOPHIL # 0.1 10^3/ul (0.0-0.1); BASOPHILS % 0.8 % (0.0-2.0); EOSINOPHILS # 0.3 10^3/ul (0.0-0.5); EOSINOPHILS % 3.7 % (0.0-7.0); HEMATOCRIT 40.7 % (37.0-47.0); HEMOGLOBIN 13.2 g/dl (12.0-16.0); LYMPHOCYTES % 33.3 % (15.0-51.0); MEAN CORPUSCULAR HEMOGLOBIN 30.8 pg (29.0-33.0); MEAN CORPUSCULAR HGB CONC 32.4 g/dl (32.0-37.0); MEAN CORPUSCULAR VOLUME 94.9 fl (82.0-101.0); MEAN PLATELET VOLUME 13.1 fl (7.4-10.4); MONOCYTE # 0.7 10^3/ul (0.3-0.9); MONOCYTES % 7.8 % (0.0-11.0); NEUTROPHIL # 4.8 10^3/ul (1.6-7.5); NEUTROPHILS % 54.1 % (39.0-77.0); PLATELET COUNT 156 10^3/UL (140-415); RED BLOOD COUNT 4.29 10^6/ul (4.20-5.40); RED CELL DISTRIBUTION WIDTH 12.3 % (11.5-14.5); WHITE BLOOD COUNT 8.9 10^3/ul (4.8-10.8)
[2017-03-15 06:39] LABS: POSITIVE DIFF @See below
[2017-03-15 07:01] LABS: CALCIUM 12.5 mg/dl (8.4-10.2); CREATININE 0.8 mg/dl (0.44-1.00); POTASSIUM 4.5 mmol/L (3.5-5.1)
[2017-03-15 07:40] VITALS: BP 152/81; RESP 16
--- NOTE | 2017-03-15 08:24 | CONS ---
Date/Time of Note Date/Time of Note DATE: 03/15/17 TIME: 08:23 Assessment/Plan Assessment/Plan Additional Assessment/Plan The patient has a multiple thyroid nodules and probable primary hyperparathyroidism. Will await results of needle biopsy and PTH level. Based on these results, recommendations for both the extent of thyroid and parathyroid surgery can be made. Consultation Date/Type/Reason Admit Date/Time Mar 12, 2017 at 05:55 Date of Consultation: Mar 15, 2017 Type of Consultation: ENT Referring Provider: LIN MARIE MD Hx of Present Illness 51 year old admitted for workup of hypercalcemia. Patient with history of nephrolithiasis. She has no known radiation exposure to the thyroid bed although there is a possibility that she may have had some exposure to the [place] nuclear incident. There is no family history of thyroid malignancy. She also has a history of a multinodular goiter. A vascular nodule at the left thyroid lobe was biopsied yesterday. A parathyroid sestamibi scan was also performed which suggests an adenoma on the left side. Her PTH level is still pending. Constitutional: no complaints Eyes: no complaints ENT: no complaints Respiratory: no complaints Cardiovascular: no complaints Gastrointestinal: no complaints Genitourinary: dysuria Social History Alcohol Use: none Smoking Status: Never smoker Drug Use: none Exam/Review of Systems Vital Signs Vitals Vital Signs Date Time Temp Pulse Resp B/P Pulse Ox O2 Delivery O2 Flow Rate FiO2 03/15/17 07:40 98.3 77 16 152/81 96 03/12/17 05:15 Room Air Intake and Output 03/14/17 03/14/17 03/15/17 15:00 23:00 07:00 Intake Total 1770 ml Balance 1770 ml Exam Constitutional: alert, oriented, well developed Psych: nl mood/affect, no complaints Head: atraumatic, normocephalic Eyes: EOMI, PERRL, nl conjunctiva, nl lids, nl sclera ENMT: nl external ears & nose, nl lips & teeth, nl nasal mucosa & septum Neck: non-tender, supple Respiratory: clear to auscultation, normal air movement Cardiovascular: nl pulses, regular rate and rhythm Gastrointestinal: nl liver, spleen, non-tender, soft Musculoskeletal: nl extremities to inspection, nl gait and stance Neurological: CONSTRUCTION SALES MANAGER II-XII intact, nl mental status, nl speech, nl strength Skin: nl turgor, No rash or lesions Lymph: nl lymph nodes Results Result Diagram: 03/15/17 0558 03/15/17 0558 Results 24 hrs Laboratory Tests Test 03/14/17 16:19 03/15/17 05:58 White Blood Count 9.1 8.9 Red Blood Count 4.25 4.29 Hemoglobin 13.3 13.2 Hematocrit 39.6 40.7 Mean Corpuscular Volume 93.2 94.9 Mean Corpuscular Hemoglobin 31.3 30.8 Mean Corpuscular Hemoglobin Concent 33.6 32.4 Red Cell Distribution Width 12.2 12.3 Platelet Count 159 156 Mean Platelet Volume 13.0 H 13.1 H Neutrophils % 54.5 54.1 Lymphocytes % 33.8 33.3 Monocytes % 8.0 7.8 Eosinophils % 2.8 3.7 Basophils % 0.7 0.8 Nucleated Red Blood Cells % 0.0 0.0 Neutrophils # 4.9 4.8 Lymphocytes # 3.1 H 3.0 H Monocytes # 0.7 0.7 Eosinophils # 0.3 0.3 Basophils # 0.1 0.1 Nucleated Red Blood Cells # 0.0 0.0 Sodium Level 146 H Potassium Level 4.5 Chloride Level 113 H Carbon Dioxide Level 19 L Anion Gap 19 H Blood Urea Nitrogen 10 Creatinine 0.80 Glucose Level 94 Calcium Level 12.5 H Medications Medications Current Medications Sodium Chloride (NS) 1,000 ml @ 150 mls/hr Q6H40M IV Last administered on 01:16; Admin Dose 150 MLS/HR; Start 03/12/17 at 06:48 Ondansetron HCl (Zofran Inj) 4 mg Q6H PRN IV NAUSEA AND/OR VOMITING; Start 03/12 at 07:00 Acetaminophen (Tylenol Tab) 650 mg Q6H PRN PO PAIN LEVEL 1-3 OR FEVER Last administered on 03/14/17 18:05; Admin Dose 650 MG; Start 03/12/17 at 07:00 Morphine Sulfate (morphine) 2 mg Q4H PRN IV SEVERE PAIN LEVEL 7-10; Start at 07:00 Magnesium Hydroxide 30 ml 30 ml DAILY PRN PO CONSTIPATION; Start 03/12/17 at 07: 00 Ceftriaxone Sodium (Rocephin) 50 ml @ 100 mls/hr Q24H IVPB Last administered on 03/14/17t 16:16; Admin Dose 100 MLS/HR; Start 03/13/17 at 15:00 Acetaminophen/ Hydrocodone Bitart ([place] (5/325)) 1 tab Q6H PRN PO PAIN LEVEL 8 -10; Start 03/14/17 at 16:00 Hydralazine HCl (Apresoline) 10 mg Q4H PRN IV for sbp greater than 160; Start 03/14/17 at 21:30 IVANIA SANTOS MD Mar 15, 2017 08:24
[2017-03-15] MEDS: ACETAMINOPHEN 325 MG TAB PO PRN ×2 (10:11→18:52)
[2017-03-15 14:17] VITALS: BP 161/95; RESP 18
--- NOTE | 2017-03-15 14:55 | PN ---
Date/Time of Note Date/Time of Note DATE: 03/15/17 TIME: 14:46 Assessment/Plan VTE Prophylaxis VTE Prophylaxis Intervention: SCD's Lines/Catheters IV Catheter Type (from [facility]): Peripheral IV Urinary Cath still in place: No Assessment/Plan Chief Complaint/Hosp Course Assessment and plan:51 yo female with hx of HTN, arrythmia, kidney stones and thyroid nodules who was sent by PCP for hypercalcemia, likely secondary to hyperparathyroidism, also with thyroid mass. 1. Hypercalcemia: Initially improved with IV fluids, but still slightly more elevated today (13 -> 11.4 ->12.2-> 12.5). Again likely from primary hyperparathyroidism. PTH levels were sent out, results still pending appreciate endocrinology consult. As well, parathyroid nuclear scan showed the following: Asymmetrically increased activity in the mid to lower pole of the left lobe of the thyroid gland with questionable retention of activity on the delayed views; a parathyroid adenoma cannot be excluded. -Continue IV fluids, monitor calcium levels daily, follow-up endocrinology recommendations -Per discussion with the ENT team today, will determine when resection could be performed. Also spoke with endocrinology team today, who was spoken with ENT team regarding this. 2. Thyroid mass: Appears to be bilateral thyroid nodules and complex cyst. Ultrasound-guided FNA biopsy was performed yesterday, biopsy came back as the following:[place] diagnostic category III -follicular lesion of undetermined significance. Per discussion with endocrinology team, who spoke with ENT today and discussed the thyroid biopsy results; plan will be for likely surgical resection of parathyroid gland and thyroid nodules. They will coordinate when this will be performed (ie: either as inpatient or as outpatient in 1-2 weeks). -Follow final recommendations, continue to monitor for now 3. Hypertension: Stable, continue current medication 4. UTI: Continue antibiotics, follow final urine culture results 5. Left flank pain: Could be related to patient's UTI, also history of calcium kidney stones. -Continue IV fluids and pain control medications. If worsens, may need to get noncontrast CT of the abdomen pelvis to further evaluate. Problems: Subjective 24 Hr Interval Summary Free Text/Dictation No acute events overnight. Seen by ENT team. Tolerating p.o. diet. Preliminary biopsy results from thyroid show: [place] diagnostic category III - follicular lesion of undetermined significance. Exam/Review of Systems Vital Signs Vitals Vital Signs Date Time Temp Pulse Resp B/P Pulse Ox O2 Delivery O2 Flow Rate FiO2 03/15/17 14:17 98.2 83 18 161/95 96 03/12/17 05:15 Room Air Intake and Output 03/14/17 03/14/17 03/15/17 15:00 23:00 07:00 Intake Total 1770 ml Balance 1770 ml Exam Constitutional: alert, oriented HEENT: Pupils equal round reactive to light, extraocular muscles intact Neck: non-tender, supple, thyromegaly (Thyroid with multinodular texture 2 nodules greater than 10 mm) Respiratory: clear to auscultation, normal air movement Cardiovascular: nl pulses, regular rate and rhythm Gastrointestinal: nl liver, spleen, non-tender, soft M/S: No lower extremity edema bilaterally Neurological: BAG MENDER II-XII intact, nl mental status, nl speech, nl strength Results Result Diagram: 03/15/17 0558 03/15/17 0558 Results 24 hrs Laboratory Tests Test 03/14/17 16:19 03/15/17 05:58 03/15/17 08:55 White Blood Count 9.1 8.9 Red Blood Count 4.25 4.29 Hemoglobin 13.3 13.2 Hematocrit 39.6 40.7 Mean Corpuscular Volume 93.2 94.9 Mean Corpuscular Hemoglobin 31.3 30.8 Mean Corpuscular Hemoglobin Concent 33.6 32.4 Red Cell Distribution Width 12.2 12.3 Platelet Count 159 156 Mean Platelet Volume 13.0 H 13.1 H Neutrophils % 54.5 54.1 Lymphocytes % 33.8 33.3 Monocytes % 8.0 7.8 Eosinophils % 2.8 3.7 Basophils % 0.7 0.8 Nucleated Red Blood Cells % 0.0 0.0 Neutrophils # 4.9 4.8 Lymphocytes # 3.1 H 3.0 H Monocytes # 0.7 0.7 Eosinophils # 0.3 0.3 Basophils # 0.1 0.1 Nucleated Red Blood Cells # 0.0 0.0 Sodium Level 146 H Potassium Level 4.5 Chloride Level 113 H Carbon Dioxide Level 19 L Anion Gap 19 H Blood Urea Nitrogen 10 Creatinine 0.80 Glucose Level 94 Calcium Level 12.5 H Lab Scanned Report REFERENCE LAB Medications Medications Current Medications Sodium Chloride (NS) 1,000 ml @ 150 mls/hr Q6H40M IV Last administered on 09:39; Admin Dose 150 MLS/HR; Start 03/12/17 at 06:48 Ondansetron HCl (Zofran Inj) 4 mg Q6H PRN IV NAUSEA AND/OR VOMITING; Start 03/12 at 07:00 Acetaminophen (Tylenol Tab) 650 mg Q6H PRN PO PAIN LEVEL 1-3 OR FEVER Last administered on 03/15/17 10:11; Admin Dose 650 MG; Start 03/12/17 at 07:00 Morphine Sulfate (morphine) 2 mg Q4H PRN IV SEVERE PAIN LEVEL 7-10; Start at 07:00 Magnesium Hydroxide 30 ml 30 ml DAILY PRN PO CONSTIPATION; Start 03/12/17 at 07: 00 Ceftriaxone Sodium (Rocephin) 50 ml @ 100 mls/hr Q24H IVPB Last administered on 03/14/17 16:16; Admin Dose 100 MLS/HR; Start 03/13/17 at 15:00 Acetaminophen/ Hydrocodone Bitart ([place] (5/325)) 1 tab Q6H PRN PO PAIN LEVEL 8 -10; Start 03/14/17 at 16:00 Hydralazine HCl (Apresoline) 10 mg Q4H PRN IV for sbp greater than 160; Start 03/14/17 at 21:30 RAGINI JUNIOR Mar 15, 2017 14:55
[2017-03-15] MEDS: CEFTRIAXONE 2 GM/50 ML (PMX) 50 ML IVPB SCH (15:06)
[2017-03-15 16:05] VITALS: BP 135/86
[2017-03-15 21:58] VITALS: BP 166/88; RESP 18
[2017-03-16] VITALS (7 sets, daily range): BP systolic 127–175; BP diastolic 80–107; PULSE 70–82; RESP 16–18
[2017-03-16] MEDS: SOD CHLORIDE 0.9% 1,000 ML IV SCH ×4 (02:00→16:32)
[2017-03-16] MEDS: ACETAMINOPHEN 325 MG TAB PO PRN ×2 (02:08→19:05)
[2017-03-16 05:56] LABS: ABNORMAL IP MESSAGE 1; BASOPHIL # 0.1 10^3/ul (0.0-0.1); BASOPHILS % 0.7 % (0.0-2.0); EOSINOPHILS # 0.2 10^3/ul (0.0-0.5); EOSINOPHILS % 1.7 % (0.0-7.0); HEMATOCRIT 39.7 % (37.0-47.0); HEMOGLOBIN 12.9 g/dl (12.0-16.0); LYMPHOCYTES # 2.6 10^3/ul (0.8-2.9); LYMPHOCYTES % 24.8 % (15.0-51.0); MEAN CORPUSCULAR HEMOGLOBIN 30.6 pg (29.0-33.0); MEAN CORPUSCULAR HGB CONC 32.5 g/dl (32.0-37.0); MEAN CORPUSCULAR VOLUME 94.3 fl (82.0-101.0); MEAN PLATELET VOLUME 13.3 fl (7.4-10.4); MONOCYTE # 0.6 10^3/ul (0.3-0.9); MONOCYTES % 5.2 % (0.0-11.0); NEUTROPHIL # 7.1 10^3/ul (1.6-7.5); NEUTROPHILS % 67.3 % (39.0-77.0); PLATELET COUNT 161 10^3/UL (140-415); RED BLOOD COUNT 4.21 10^6/ul (4.20-5.40); RED CELL DISTRIBUTION WIDTH 12.2 % (11.5-14.5); WHITE BLOOD COUNT 10.5 10^3/ul (4.8-10.8)
[2017-03-16 06:10] LABS: POSITIVE DIFF @See below
[2017-03-16 06:11] LABS: CALCIUM 12.4 mg/dl (8.4-10.2); CREATININE 0.72 mg/dl (0.44-1.00); POTASSIUM 4.4 mmol/L (3.5-5.1)
--- NOTE | 2017-03-16 11:46 | CONS ---
Date/Time of Note Date/Time of Note DATE: 03/16/17 TIME: 11:42 Assessment/Plan Assessment/Plan Chief Complaint/Hosp Course Pleasant 51-year-old Citizen Of [place] and [place] speaking young lady with a history of recurrent renal stones previously admitted admitted and operated on for kidney stones at another facility by Dr. Vik Renner. Her primary care physician is Dr. Wolfgang Stack, and her freight trucker is Dr. Doyle Mendoza. She has been dealing with a hypercalcemia and according to Dr. Mendoza's office notes of been referred for evaluation but had not had it completed. She has a history of recurring renal stones are calcium oxalate. She had had a current serum calcium 11.6 a year ago at this facility. She never developed more significant hypercalcemia because this was sent over for hydration and treatment. She has no known radiation exposure to the thyroid bed although there is a possibility that she may have had some exposure to the [place] nuclear incident. There is no family history of thyroid malignancy. There is no family history to suggest an MEN syndrome. Please note her admission urinalysis is suggestive of possible UTI Problems: (1) Vitamin D deficiency Status: Chronic Comment: Is appropriate to initiate gentle replacement. This should not drive the calcium up it would make a surgical recovery much easier. The main issue here is getting the parathyroid surgery done in the near future. (2) Primary hyperparathyroidism Status: Chronic Comment: She has significant hypercalcemia. While I do not think that this is a parathyroid carcinoma but simply primary hyperparathyroidism due to parathyroid adenoma she does need surgery. Given the abnormal findings on the thyroid biopsy she will need a thyroidectomy and parathyroid adenoma resection. There would be no reason to forbid doing a simultaneous urologic procedures in her however the logistical issues for that may be daunting. She will need urological surgeries to deal with the impacted renal stones that she has regardless of how well this works out. This will simply prevent new renal stones. A significant issue is that with her degree of hypercalcemia to try and give her drug to lower that would require us to use a short acting drug. If we were to give her drug such as pamidronate the duration of action of the drug would cause a problem when she had a parathyroidectomy should go hypocalcemic can be somewhat difficult to correct. A shorter acting drug such as Sensipar is a consideration in this setting. The main issue is finding out from ENT when they are planning to operate on her. (3) Multiple thyroid nodules Status: Chronic Comment: As noted she will need a subtotal thyroidectomy (4) Calcium oxalate kidney stones Status: Chronic Comment: As per the primary team organizing with urology to deal with this. Please note her urologist is on staff here; Dr. Vik Renner Consultation Date/Type/Reason Admit Date/Time Mar 12, 2017 at 05:55 Initial Consult Date 03/12/17 Type of Consultation: Endocrinology Reason for Consultation Primary hyperparathyroidism; vitamin D deficiency; multinodular thyroid goiter with biopsy showing indeterminate lesion. ([place] 3) Referring Provider: LIN MARIE MD 24 HR Interval Summary Free Text/Dictation Patient is able to ambulate but does note flank pain from her renal stones no other complaints Exam/Review of Systems Vital Signs Vitals Vital Signs Date Time Temp Pulse Resp B/P Pulse Ox O2 Delivery O2 Flow Rate FiO2 03/16/17 07:40 98.1 91 16 128/80 97 Intake and Output 03/15/17 03/15/17 03/16/17 15:00 23:00 07:00 Intake Total 550 ml 1950 ml 1650 ml Balance 550 ml 1950 ml 1650 ml Exam No changes in exam Results Result Diagram: 03/16/17 0440 03/16/17 0440 Results 24 hrs Laboratory Tests Test 03/16/17 04:40 White Blood Count 10.5 Red Blood Count 4.21 Hemoglobin 12.9 Hematocrit 39.7 Mean Corpuscular Volume 94.3 Mean Corpuscular Hemoglobin 30.6 Mean Corpuscular Hemoglobin Concent 32.5 Red Cell Distribution Width 12.2 Platelet Count 161 Mean Platelet Volume 13.3 H Neutrophils % 67.3 Lymphocytes % 24.8 Monocytes % 5.2 Eosinophils % 1.7 Basophils % 0.7 Nucleated Red Blood Cells % 0.0 Neutrophils # 7.1 Lymphocytes # 2.6 Monocytes # 0.6 Eosinophils # 0.2 Basophils # 0.1 Nucleated Red Blood Cells # 0.0 Sodium Level 145 H Potassium Level 4.4 Chloride Level 110 Carbon Dioxide Level 19 L Anion Gap 20 H Blood Urea Nitrogen 9 Creatinine 0.72 Glucose Level 104 Calcium Level 12.4 H Medications Medications Current Medications Sodium Chloride (NS) 1,000 ml @ 150 mls/hr Q6H40M IV Last administered on t 02:00; Admin Dose 150 MLS/HR; Start 03/12/17 at 06:48 Ondansetron HCl (Zofran Inj) 4 mg Q6H PRN IV NAUSEA AND/OR VOMITING; Start 03/12 at 07:00 Acetaminophen (Tylenol Tab) 650 mg Q6H PRN PO PAIN LEVEL 1-3 OR FEVER Last administered on 03/16/17 02:08; Admin Dose 650 MG; Start 03/12/17 at 07:00 Morphine Sulfate (morphine) 2 mg Q4H PRN IV SEVERE PAIN LEVEL 7-10; Start at 07:00 Magnesium Hydroxide 30 ml 30 ml DAILY PRN PO CONSTIPATION; Start 03/12/17 at 07: 00 Ceftriaxone Sodium (Rocephin) 50 ml @ 100 mls/hr Q24H IVPB Last administered on 03/15/17 15:06; Admin Dose 100 MLS/HR; Start 03/13/17 at 15:00 Acetaminophen/ Hydrocodone Bitart ([place] (5/325)) 1 tab Q6H PRN PO PAIN LEVEL 8 -10; Start 03/14/17 at 16:00 LIN MARIE MD Mar 16, 2017 11:46
[2017-03-16] MEDS ORDERED: morphine 2 MG INJ IV PRN (12:00)
[2017-03-16] MEDS ORDERED: CHOLECALCIFEROL 2,000 UNIT CAP PO SCH (12:00)
[2017-03-16] MEDS: CEFTRIAXONE 2 GM/50 ML (PMX) 50 ML IVPB SCH ×2 (14:38→16:29)
--- NOTE | 2017-03-16 15:39 | PDOCDIS ---
Discharge Instructions CONDITION Patient Condition: Stable HOME CARE INSTRUCTIONS: Special Diet: REGULAR DIET ACTIVITY: Activity Restrictions: Slowly Increase Activity FOLLOW UP/APPOINTMENTS Follow-up Plan Please take your medications as prescribed. Please follow-up with the ENT doctor on Saturday for your surgical options regarding your parathyroid and thyroid abnormalities. RAGINI JUNIOR Mar 16, 2017 15:39
[2017-03-16] MEDS ORDERED: CHOL200073 PO (15:40)
--- NOTE | 2017-03-16 15:47 | DS ---
Date/Time of Note Date/Time of Note DATE: 03/16/17 TIME: 15:41 Discharge Summary Admission/Discharge Info Admit Date/Time Mar 12, 2017 at 05:55 Discharge Date/Time Discharge Diagnosis 1. Hypercalcemia: Somewhat improved with IV fluids, likely from primary hyperparathyroidism. 2. Thyroid mass: Appears to be bilateral thyroid nodules and complex cyst. Ultrasound-guided FNA biopsy was performed = [place] diagnostic category III - follicular lesion of undetermined significance. 3. Hypertension: Stable 4. UTI: Status post antibiotic 5. Left flank pain: Secondary to history of calcium renal stones, presently stable Patient Condition: Stable Hx of Present Illness Hospital Course 51 yo female with hx of HTN, arrythmia, kidney stones and thyroid nodules who was sent by PCP for hypercalcemia. In the ER, calcium was 13.6. Patient was in our ER few months ago and at that time, thyroid u/s showed Bilateral thyroid nodules and complex cysts. She was told to f/u as outpt. Patient was admitted, seen by ear nose and throat doctor as well as endocrinology doctor. She was started on aggressive IV fluid hydration, calcium levels are monitored. It was determined that her hypercalcemia was likely from primary hyperparathyroidism. Parathyroid nuclear scan showed increased activity in the mid to lower pole of the left lobe of the thyroid gland with questionable retention of activity on the delayed views as a parathyroid adenoma could not be excluded. Patient also was found with bilateral thyroid nodules and complex cyst in the thyroid. Ultrasound guided FNA biopsy was performed and it showed [place] diagnostic category 3 follicular lesion of undetermined significance. Patient was also started on low-dose vitamin D supplementation. She was also treated for urinary tract infection with antibiotics. Over the course of her hospital stay her symptoms improved. Upon discussion with endocrinology and ENT teams, it was determined that patient would be safe for discharge home and will have close follow-up in the next 1-2 days at the ear nose and throat doctors office where she will need to have surgical resection of both the thyroid and parathyroid masses. She was also treated for left flank pain, thought to be secondary to patient's history of calcium kidney stones and the UTI. And her blood pressure was stable on current medications as well. See below for discharge medication list. Home Meds Active Scripts Cholecalciferol (Vitamin D3) (VITAMIN D-3) 2,000 Unit Capsule, 2000 UNIT PO DAILY, #30 CAP 2 Refills Prov:RAGINI JUNIOR S. 03/16/17 Discontinued Scripts Amoxicillin* (Amoxicillin*) 500 Mg Cap, 500 MG PO BID for 10 Days, CAP Prov:LIN CROWDER DO 12/23/16 Naproxen* (Naproxen*) 500 Mg Tablet, 500 MG PO BID, #20 TAB Prov:LIN CROWDER DO 12/23/16 Tramadol HCl (Tramadol HCl) 50 Mg Tablet, 50 MG PO Q4 Y for PAIN, #20 TAB Prov:ALESHA BROUSSARD I. [employer] 12/09/15 Nitrofurantoin Monohyd Macrocr* (Macrobid*) 100 Mg Capsr, 100 MG PO BID for 5 Days, CAP Prov:ALESHA BROUSSARD I. [employer] 12/09/15 Primary Care Provider Care Physician No Primary Pending Labs Laboratory Tests Test 03/16/17 04:40 White Blood Count 10.510^3/ul (4.8-10.8) Red Blood Count 4.2110^6/ul (4.20-5.40) Hemoglobin 12.9g/dl (12.0-16.0) Hematocrit 39.7% (37.0-47.0) Mean Corpuscular Volume 94.3fl (82.0-101.0) Mean Corpuscular Hemoglobin 30.6pg (29.0-33.0) Mean Corpuscular Hemoglobin Concent 32.5g/dl (32.0-37.0) Red Cell Distribution Width 12.2% (11.5-14.5) Platelet Count 68351^3/UL (140-415) Mean Platelet Volume 13.3fl (7.4-10.4) Neutrophils % 67.3% (39.0-77.0) Lymphocytes % 24.8% (15.0-51.0) Monocytes % 5.2% (0.0-11.0) Eosinophils % 1.7% (0.0-7.0) Basophils % 0.7% (0.0-2.0) Nucleated Red Blood Cells % 0.0/100WBC (0.0-0.0) Neutrophils # 7.110^3/ul (1.6-7.5) Lymphocytes # 2.610^3/ul (0.8-2.9) Monocytes # 0.610^3/ul (0.3-0.9) Eosinophils # 0.210^3/ul (0.0-0.5) Basophils # 0.110^3/ul (0.0-0.1) Nucleated Red Blood Cells # 0.010^3/ul (0.0-0.0) Sodium Level 145mmol/L (135-144) Potassium Level 4.4mmol/L (3.5-5.1) Chloride Level 110mmol/L (97-110) Carbon Dioxide Level 19mmol/L (21-31) Anion Gap 20 (8-16) Blood Urea Nitrogen 9mg/dl (7-20) Creatinine 0.72mg/dl (0.44-1.00) Glucose Level 104mg/dl (70-220) Calcium Level 12.4mg/dl (8.4-10.2) RAGINI JUNIOR Mar 16, 2017 15:46
[2017-03-16] MEDS ORDERED: AMLO2.5T78 PO (16:09)
[2017-03-16] MEDS ORDERED: CIPR-193 PO (16:09)
--- NOTE | 2017-03-17 08:33 | CONS ---
Date/Time of Note Date/Time of Note DATE: 03/17/17 TIME: 08:32 Assessment/Plan Assessment/Plan Chief Complaint/Hosp Course 51 year old admitted for workup of hypercalcemia. Patient with history of nephrolithiasis. She has no known radiation exposure to the thyroid bed although there is a possibility that she may have had some exposure to the [place] nuclear incident. There is no family history of thyroid malignancy. She also has a history of a multinodular goiter. A vascular nodule at the left thyroid lobe was biopsied yesterday. A parathyroid sestamibi scan was also performed which suggests an adenoma on the left side. Her PTH level is still pending. Problems: Additional Assessment/Plan Patient seen last night. FNAB is bethesda III. Discussed with Dr. Lui. Will proceed with total thyroidectomy and parathyroidectomy. Will schedule surgery as an outpatient. Consultation Date/Type/Reason Admit Date/Time Mar 12, 2017 at 05:55 Initial Consult Date 03/15/17 Type of Consultation: Endocrinology Referring Provider: LIN LUI MD Exam/Review of Systems Vital Signs Vitals Vital Signs Date Time Temp Pulse Resp B/P Pulse Ox O2 Delivery O2 Flow Rate FiO2 03/16/17 21:09 98.0 89 18 163/93 97 Intake and Output 03/16/17 03/16/17 03/17/17 15:00 23:00 07:00 Intake Total 1320 ml Balance 1320 ml Results Result Diagram: 03/16/17 0440 03/16/17 0440 IVANIA SANTOS MD Mar 17, 2017 08:33
--- NOTE | 2017-03-19 05:49 | CONS ---
DATE OF ADMISSION: 03/12/2017 DATE OF CONSULTATION: 03/13/2017 HISTORY OF PRESENT ILLNESS: Samantha Mijares is a 51-year- old female admitted with hypercalcemia of 13.6. She was noted to have thyroid nodules as well and ENT was consulted to evaluate her. PAST MEDICAL HISTORY: Positive for history of nephrolithiasis in the past, is also positive for hypertension, arrhythmia and thyroid nodules. PAST SURGICAL HISTORY: Positive for a cystoscopy with removal stones. MEDICATIONS: None. ALLERGIES: NO KNOWN DRUG ALLERGIES. SOCIAL HISTORY: Negative tobacco, alcohol, or drug abuse. FAMILY HISTORY: Negative for any heart, lung, kidney, thyroid disease. REVIEW OF SYSTEMS: While she does not admit to any bone pain, she does have pain in both feet. Twelve point review of systems is otherwise noncontributory. PHYSICAL EXAMINATION: HEENT: Today, the ear canals are clear, noted to be intact. There is no fluid, erythema or infection. Her septum is midline. Mucosa without erythema, edema, or tearing or fracture. Teeth in good repair. Tongue, floor of mouth, normal. Oropharynx is without lesion. NECK: Reveals no lymphadenopathy or thyromegaly. I palpated a small right-sided thyroid nodule. The presence of without lesion. IMPRESSION: Hyperparathyroidism, multinodular goiter. PLAN: At this point, fine-needle aspiration biopsy of her thyroid should be performed. In addition, a sestamibi study should be done to help localize the parathyroid adenoma. If her hypercalcemia can be brought down to an adequate level, she can be discharged home and surgery can be scheduled as an outpatient. If there are any questions or concerns, please free to call us. Dictated By: Gael Qureshi MD /[email or web address]/neil /Document#: [id number]
== END 2017-03-16 20:26 | disposition home or self-care (01) | DRG 644 ==
LOC: E/R 20:44 → PP2 03-12 05:55
PROVIDERS: ADMIT Internal Medicine; ATTEND Internal Medicine
PROC: 0GBG3ZX Excision of Left Thyroid Gland Lobe, Percutaneous Approach, Diagnostic (ICD-10-PCS; principal; 2017-03-13)
DX: D35.1 Benign neoplasm of parathyroid gland (principal); N39.0 Urinary tract infection, site not specified; E83.52 Hypercalcemia; E21.0 Primary hyperparathyroidism; N20.0 Calculus of kidney; W99 Exposure to other man-made environmental factors; E04.1 Nontoxic single thyroid nodule; E55.9 Vitamin D deficiency, unspecified
CPT/HCPCS: 36415; 70491; 76942; 78070; 80048; 80053; 81001; 82306; 82330; 82652; 83690; 83735; 83970; 84100; 84155; 84165; 84436; 84443; 84479; 85025; 85610; 87086; 88104; 88307; 88313; A9500; J0360; J1650; J7030; J7040; Q9967